=== PATIENT | female | born 1990 | race Caucasian/White ===

== ENCOUNTER 2024-08-03 08:39 | Emergency (ER) | payer BC, SELFPAY ==
--- NOTE | 2024-08-03 08:44 | ED_ITS ---
HPI - Skin/Abscess/Foreign Bdy General Chief complaint: Skin/Abscess/Foreign Body Stated complaint: Skin Irritation Time Seen by Provider: 08/03/24 09:05 Source: patient Mode of arrival: ambulatory Limitations: no limitations History of Present Illness HPI narrative: Lianne is a 33-year-old female patient presenting to the clinic today with complaints of multiple possible boils to her abdomen, thighs, and buttocks. States she 1st noticed this yesterday. States that the boil on her left buttocks has been draining. She denies any fever chills. Thinks that she may have a staph infection. Has not had a history of staph infection in the past. She is currently . Related Data Allergies Allergy/AdvReac Type Severity Reaction Status Date / Time No Known Allergies Allergy Verified 08/03/24 08:57 Review of Systems Review of Systems: Pertinent positives per HPI. Patient denies any fever, chills, headache, visual changes, dizziness, cough, runny nose, sore throat, shortness of breath, chest pain, palpitations, nausea, vomiting, diarrhea, constipation, abdominal pain, or any urinary issues. [facility] Family History Family History Mother Cancer Sibling Asthma Thyroid disorder Grandparent Hypertension Alcoholism Heart disease Social History Social History Smoking status: Never smoker Alcohol intake: current Substance use: never Substance use type: does not use Living arrangements: with family Occupation/Education: occupation Additional occupation/education comments: Speech Pathologist at [employer] Gender identity (if verbalized by the patient): Female Agree to blood products: Yes Comments At the time of my signature, I reviewed and agree with the nursing past medical, surgical, social, and family history. There is no relevant family history pertinent to the patient complaint. Exam Narrative: General: Well-developed, well nourished, in no apparent distress Head: Normocephalic, atraumatic. Cardio: Regular rate and rhythm, s1 and s2 normal, no murmur appreciated. Resp: Clear to auscultation bilaterally, no rhonchi, rales, wheezing or rubs. Integumentary: Holl[place], warm, and dry, intact without lesion, non indurated skin sores to the left buttocks, left lower abdomen, left-sided pubis, and in the left inner thigh near the groin. None of these areas are draining. Mild redness localized without induration or fluctuance- Lea May HAND THERAPIST at bedside during exam. Course Course Emergency Course: Portions of this record may have been created with voice recognition software. Level of Care: Express Care Visit Vital Signs Vital signs: Vital signs reviewed MDM - Skin/Abscess/Foreign Bdy MDM Narrative Medical decision making narrative: At the time of visit patient is resting comfortably on the exam table. Patient appears to be nontoxic. Plan: I suspect patient may have a skin infection. Prescription for cephalexin and mupirocin cream was sent to the pharmacy. Supportive measures were discussed with the patient and they voiced understanding discharge instructions and agrees to treatment plan. Return precautions reviewed Differential Diagnosis Differential diagnosis: Likely abscess of skin or subcutaneous tissue, viral exanthem, dermatophytosis, urticaria, herpes zoster, allergic reaction to drug, cellulitis, eczema, insect bites, impetigo and contact dermatitis Discharge Plan Discharge Clinical Impression: Bacterial skin infection Patient Disposition: Home, Self-Care Condition: Stable Instructions: Antibiotic Form, Wound Infection (ED) Additional Instructions: Apply mupirocin cream to the affected areas twice daily as prescribed Take cephalexin as prescribed Keep areas clean and dry Practice good hand washing techniques Increase fluids and stay well hydrated May take Tylenol/Motrin as needed for pain or fever. Follow-up with your primary care doctor in 1 week if symptoms persist Prescriptions: New cephalexin 500 mg capsule 500 mg PO Q8H 7 Days Qty: 21 0RF mupirocin 2 % ointment 1 applic topical BID 7 Days Qty: 22 0RF Follow-up/Referrals: Brittany,Anthony Fuentes MD [Primary Care Provider] - Time of Disposition: 09:16 Quality NIHSS Nursing Documentation ED NIHSS nursing documentation: reviewed/agree
[2024-08-03 08:59] VITALS: BP 151/98; PULSE 96; RESP 16; TEMP 35.9; O2SAT 98
[2024-08-03 09:36] VITALS: BP 120/86
== END 2024-08-03 09:36 | disposition home or self-care (01) ==
PROVIDERS: Emergency Provider Nurse Practitioner Family; PCP Internal Medicine
DX: L08.9 Local infection of the skin and subcutaneous tissue, unspecified (principal); B96.89 Other specified bacterial agents as the cause of diseases classified elsewhere
CPT/HCPCS: 99213; G0463